=== PATIENT | female | born 1950 | race Hispanic/Latino ===

== ENCOUNTER 2021-11-02 18:21 | Emergency (ER) | payer SELFPAY ==
[~2021-11-02] VITALS: Ht 154.9 cm; Wt 65.3 kg
[2021-11-02] MEDS ORDERED: DOXYCYCLINE HY100 MG PO (19:56)
[2021-11-02] MEDS ORDERED: PROBIOTIC 2 BI1 EACH PO (19:56)
[2021-11-02] MEDS ORDERED: CLEOCIN HCL300 MG PO (19:56)
== END 2021-11-02 21:15 | disposition home or self-care (01) ==
LOC: FSED 18:27
DX: L03.116 Cellulitis of left lower limb (principal); E11.9 Type 2 diabetes mellitus without complications
CPT/HCPCS: 93971; 99283